=== PATIENT | male | born 1950 | race Caucasian/White ===

== ENCOUNTER → 2024-01-07 | Outpatient (CLI) | payer MEDICARE ==
--- NOTE | 2024-01-07 15:32 | US ---
EXAMINATION TYPE: US kidneys/renal and bladder DATE OF EXAM: 01/07/2024 COMPARISON: NONE CLINICAL INDICATION: Male, 73 years old with history of N17.9 ACUTE KIDNEY FAILURE, UNSPECIFIED; Marbella ent states that he had elevated kidney labs. No other pain or symptoms EXAM MEASUREMENTS: Right Kidney: 10.0 x 5.7 x 5.8 cm Left Kidney: 12.1 x 5.8 x 4.9 cm Exhibition Organiser notes:slightly limited due to overlying gas Right Kidney: There is a large exophytic cyst at the upper pole measuring up to nearly 7 cm. No hydro nephrosis. Left Kidney: No hydronephrosis or masses as best visualized Bladder: wnl Bilateral Jets seen: Yes Large, lobulated prostate gland impressing into the base of the bladder. IMPRESSION: 1. No hydronephrosis. 2. Suspect a large 7 cm cyst at the upper pole of the right kidney. 3. Prostatomegaly impressing into the base of the bladder.
== END | disposition home or self-care (01) ==
LOC: RADUSWWP 14:39
PROVIDERS: ATTEND Family Medicine
DX: N40.0 Benign prostatic hyperplasia without lower urinary tract symptoms (principal); N17.9 Acute kidney failure, unspecified
CPT/HCPCS: 76770